=== PATIENT | female | born 2000 ===

== ENCOUNTER 2019-10-27 12:02 | Inpatient (IN) ==
[2019-10-27 13:49] LABS: ALT 12 U/L (7-52); AST 15 U/L (13-39); Albumin 4.7 g/dL (3.2-5.2); Albumin/Globulin Ratio 1.5 (1-3); Alkaline Phosphatase 57 U/L (34-104); Anion Gap 9 mmol/L (2-11); BUN/Creatinine Ratio 11.1 (8-20); Blood Urea Nitrogen 9 mg/dL (6-24); CO2 Carbon Dioxide 22 mmol/L (22-32); Calcium 9.9 mg/dL (8.6-10.3); Chloride 105 mmol/L (101-111); EGFR African American 109.1 (>60); EGFR Non-African American 90.1 (>60); Globulin 3.1 g/dL (2-4); Glucose 101 mg/dL (70-100); Potassium 3.9 mmol/L (3.5-5.0); Sodium 136 mmol/L (135-145); Total Protein 7.8 g/dL (6.4-8.9)
[2019-10-27 14:05] LABS: ABS Lymphocytes 1.3 10^3/ul (1.0-4.8); ABS Monocytes 0.6 10^3/ul (0-0.8); ABS Neutrophils 8.3 10^3/ul (1.5-7.7); Eosinophil % 0.3 %; Hematocrit 42 % (35-47); Lymphocyte % 12.7 %; Mean Corpuscular HGB Conc 34 g/dL (31-36); Mean Corpuscular Hemoglobin 25 pg (27-31); Mean Corpuscular Volume 73 fL (80-97); Mean Platelet Volume 11.7 fL (7.4-10.4); Platelet Count 8 10^3/uL (150-450); Red Blood Count 5.72 10^6 /uL (3.70-4.87); Red Cell Distribution Width 14 % (10-15); White Blood Count 10.3 10^3/uL (3.5-10.8)
[2019-10-27 14:16] LABS: Vitamin B12 299 pg/mL (180-914)
[2019-10-27 14:27] LABS: % Iron Saturation 7 % (15-55); Iron 36 ug/dL (50-212); LDH 220 U/L (140-271); Total Iron Binding Capacity 542 mcg/dL (250-450); Transferrin 387 mg/dL (203-362); Unsaturated Iron Binding < 527 ug/dL
[2019-10-27] MEDS ORDERED: Immune Glob 10%-20GM PRIVIGEN 20 GM, Immune Glob 10%-10GM PRIVIGEN 10 GM in Premix IV 0 ML IV ONE ×3 (15:10→20:00)
[2019-10-27 15:39] LABS: Corrected Retic Count 1.1 % (0.5-1.5); Hematocrit for Retic CNT 41 % (35-47); Immature Retic Fraction 0.52; RBC Retic Count 5.66 10^6/uL (3.70-4.87)
[2019-10-27 16:14] LABS: ABS Monocytes 0.7 10^3/ul (0-0.8); ABS Neutrophils 7.2 10^3/ul (1.5-7.7); Eosinophil % 0.3 %; Hematocrit 43 % (35-47); Hemoglobin 14.2 g/dL (12.0-16.0); Lymphocyte % 20.5 %; Mean Corpuscular HGB Conc 33 g/dL (31-36); Mean Corpuscular Hemoglobin 24 pg (27-31); Mean Corpuscular Volume 72 fL (80-97); Mean Platelet Volume 11.2 fL (7.4-10.4); Platelet Count 7 10^3/uL (150-450); Red Blood Count 5.87 10^6 /uL (3.70-4.87); Red Cell Distribution Width 14 % (10-15); White Blood Count 9.9 10^3/uL (3.5-10.8)
[2019-10-27 16:51] LABS: Activated Partial Thrombo Time 39.6 seconds (26.0-38.0); Fibrinogen 388.9 mg/dL (110.8-404.3); INR 1.12 (0.82-1.09)
[2019-10-27 19:38] LABS: Hepatitis B Surface Antigen Nonreactive (Nonreactive)
[2019-10-27 19:43] LABS: Hepatitis A Ab IgM Negative (Negative); Hepatitis B Core IgM Nonreactive (Nonreactive)
[2019-10-27 19:55] LABS: Hepatitis C Antibody Negative (Negative)
[2019-10-28] MEDS: Norethindrone 0.35 mg TAB (NF) PO SCH (08:21)
[2019-10-28 09:41] LABS: ABS Eosinophils 0.1 10^3/ul (0-0.6); ABS Lymphocytes 1.6 10^3/ul (1.0-4.8); ABS Monocytes 0.4 10^3/ul (0-0.8); Eosinophil % 1.7 %; Hematocrit 40 % (35-47); Hemoglobin 13.4 g/dL (12.0-16.0); Lymphocyte % 22.1 %; Mean Corpuscular HGB Conc 34 g/dL (31-36); Mean Corpuscular Hemoglobin 25 pg (27-31); Mean Corpuscular Volume 73 fL (80-97); Mean Platelet Volume 11.4 fL (7.4-10.4); Nucleated Red Blood Cells % 0.1; Platelet Count 14 10^3/uL (150-450); Red Blood Count 5.47 10^6 /uL (3.70-4.87); Red Cell Distribution Width 13 % (10-15); White Blood Count 7.1 10^3/uL (3.5-10.8)
[2019-10-28] MEDS: Ondansetron ODT 4 mg TAB 4 MG TAB SL PRN (10:05)
[2019-10-28] MEDS ORDERED: Immune Globuln (PRIVIGEN) 30 GM in PREMIX IV ONE (20:00)
[2019-10-29 05:43] LABS: ABS Eosinophils 0.1 10^3/ul (0-0.6); ABS Lymphocytes 2.5 10^3/ul (1.0-4.8); ABS Monocytes 1.1 10^3/ul (0-0.8); Eosinophil % 0.4 %; Hematocrit 37 % (35-47); Hemoglobin 12.7 g/dL (12.0-16.0); Lymphocyte % 19.5 %; Mean Corpuscular HGB Conc 34 g/dL (31-36); Mean Corpuscular Hemoglobin 25 pg (27-31); Mean Corpuscular Volume 72 fL (80-97); Red Blood Count 5.16 10^6 /uL (3.70-4.87); Red Cell Distribution Width 14 % (10-15); White Blood Count 12.6 10^3/uL (3.5-10.8)
[2019-10-29 05:53] LABS: Albumin 3.9 g/dL (3.2-5.2); Albumin/Globulin Ratio 0.8 (1-3); Calcium 9.6 mg/dL (8.6-10.3); EGFR African American 119.2 (>60); EGFR Non-African American 98.5 (>60); Globulin 4.6 g/dL (2-4); Potassium 3.8 mmol/L (3.5-5.0); Total Bilirubin 0.9 mg/dL (0.2-1.0); Total Protein 8.5 g/dL (6.4-8.9)
[2019-10-29 06:44] LABS: Mean Platelet Volume 11.8 fL (7.4-10.4); Platelet Count 32 10^3/uL (150-450)
[2019-10-29 07:57] VITALS: BP 113/67
[2019-10-29] MEDS: Ondansetron ODT 4 mg TAB 4 MG TAB SL PRN (08:14)
[2019-10-29] MEDS: Norethindrone 0.35 mg TAB (NF) PO SCH (08:18)
== END 2019-10-29 11:05 | disposition home or self-care (01) | DRG 661 ==
LOC: ED 12:02 → MED 14:59
PROVIDERS: ADMIT Hospitalist; ATTEND Internal Medicine Hematology & Oncology